=== PATIENT | female | born 1955 | race Caucasian/White ===

== ENCOUNTER → 2017-08-09 16:45 | Outpatient (REF) | payer BC, SELFPAY ==
[2017-08-09 19:11] LABS: Amphetamine/Metha Screen,Urine Negative ng/mL (<1000); Barbiturates Screen,Urine Negative ng/mL (<200); Benzodiazepines Screen,Urine Negative ng/mL (200); Cannabinoid Screen,Urine Negative ng/mL (<50); Cocaine Screen,Urine Negative ng/g (<300); Methadone Screen,Urine Negative ng/mL (<300); Opiate Screen,Urine Negative ng/mL (<300); Phencyclidine Screen,Urine Negative ng/mL (<25)
== END ==
LOC: LAB 16:45
PROVIDERS: Visit Provider Nurse Practitioner Family
DX: Z79.899 Other long term (current) drug therapy (principal)
CPT/HCPCS: 80305

== ENCOUNTER → 2019-02-04 12:57 | Outpatient (CLI) | payer SELFPAY ==
--- NOTE | 2019-02-04 13:04 | XR_ITS ---
PROCEDURE: XR HAND RT MIN 3V CLINICAL INDICATION: spider bite Pain and swelling COMPARISON: No exams were available for comparison FINDINGS: No fracture or dislocation. No lytic or blastic change. There is normal mineralization. The joint spaces are well-preserved. No significant degenerative/arthritic changes. No erosive changes evident. Other findings:There is a transverse screw and a K-wire present in the distal radius IMPRESSION: Postsurgical changes, no acute finding Dictated by: Hemanth Beatty MD 02/04/2019 13:14 Signed by: <Electronically signed by Hemanth Beatty MD in [facility]> 02/04/2019 13:14
== END ==
PROVIDERS: PCP Nurse Practitioner Family; Visit Provider Orthopaedic Surgery
DX: T63.301A Toxic effect of unspecified spider venom, accidental (unintentional), initial encounter (principal)
CPT/HCPCS: 73130

== ENCOUNTER → 2019-07-05 09:47 | Outpatient (CLI) | payer MEDICAID, SELFPAY ==
--- NOTE | 2019-07-05 09:49 | XR_ITS ---
PROCEDURE: XR CHEST 2V CLINICAL HISTORY: cough COMPARISON: No exams were available for comparison FINDINGS: The cardiomediastinal silhouette and pulmonary vascularity are within normal limits. The lungs are clear without infiltrates, suspicious nodules, or pleural effusions. No acute bony abnormalities. IMPRESSION: No acute findings. Dictated by: Dre Manley 07/05/2019 11:48 Electronically signed by Dre Manley in [facility] 07/05/2019 11:48
== END ==
PROVIDERS: PCP Emergency Medicine; Visit Provider Nurse Practitioner Family
DX: R05 Cough (principal); I10 Essential (primary) hypertension
CPT/HCPCS: 71046

== ENCOUNTER → 2019-07-05 10:35 | Outpatient (CLI) | payer MEDICAID, SELFPAY ==
[2019-07-05 11:29] LABS: Basophils # 0.1 K/mm3 (0-0.2); Basophils % 0.9 % (0.1-2.0); Eosinophils # 0.2 K/mm3 (0.0-0.4); Eosinophils % 3.1 % (0.1-12.0); Hematocrit 42.5 % (37.0-47.0); Lymphocytes # 2.4 K/mm3 (0.7-4.5); Lymphocytes % 32.7 % (10-50); Mean Corpuscular Hemoglobin 27.7 pg (27.0-31.2); Mean Corpuscular Volume 83.9 fl (81-99); Monocytes # 0.3 K/mm3 (0.1-1.0); Monocytes % 4.4 % (1.7-9.3); Neutrophils # 4.3 K/mm3 (1.8-7.8); Platelet Count 308 K/mm3 (142-424); Red Blood Count 5.07 M/mm3 (4.20-5.40); Red Cell Distribution Width 13.5 % (11.5-17.5); White Blood Count 7.2 K/mm3 (4.8-10.8)
[2019-07-05 13:28] LABS: Alanine Aminotransferase 22 U/L (12-78); Albumin/Globulin Ratio 1.1 (1.1-1.8); Alkaline Phosphatase 81 U/L (46-116); Anion Gap 15.6 mEq/L (5-15); Aspartate Amino Transferase 17 U/L (15-37); Bilirubin,Total 0.5 mg/dL (0.2-1.0); Blood Urea Nitrogen 16 mg/dL (7-18); Calcium 9.5 mg/dL (8.5-10.1); Carbon Dioxide 25 mmol/L (21.0-32.0); Chloride 102 mmol/L (98-107); Creatinine,Serum 0.89 mg/dL (0.55-1.02); Estimated Glomerular Filt Rate 64 ml/min (>60); GFR (African American) 78 ML/MIN (>60); Globulin 3.5 gm/dl (1.3-3.2); Glucose 97 mg/dL (74-106); Potassium 4.6 mmoL/L (3.5-5.1); Sodium 138 mmol/L (136-145); Total Protein,Serum 7.5 gm/dL (6.4-8.2)
== END ==
PROVIDERS: Visit Provider Nurse Practitioner Family
DX: I10 Essential (primary) hypertension (principal)
CPT/HCPCS: 36415; 80053; 85025

== ENCOUNTER → 2019-11-06 14:50 | Outpatient (CLI) | payer MEDICAID, SELFPAY | PROVIDERS: Visit Provider Physician Assistant | DX: N39.0 Urinary tract infection, site not specified (principal) | CPT/HCPCS: 87086; 87088; 87186 ==

== ENCOUNTER → 2020-06-29 15:26 | Outpatient (CLI) | payer MEDICAID, SELFPAY ==
--- NOTE | 2020-06-29 15:30 | XR_ITS ---
PROCEDURE: XR CHEST 2V CLINICAL HISTORY: cough COMPARISON: CR XR CHEST 2V from 07/05/2019 FINDINGS: The cardiomediastinal silhouette and pulmonary vascularity are within normal limits. The lungs are clear without infiltrates, suspicious nodules, or pleural effusions. There is exaggeration of the thoracic kyphosis with mild midthoracic degenerative changes. IMPRESSION: No acute findings. Dictated by: Hemanth Beatty MD 06/29/2020 15:41 Hemanth Beatty MD in [facility] 06/29/2020 15:41
== END ==
PROVIDERS: PCP Nurse Practitioner Family; Visit Provider Nurse Practitioner Family
DX: R05 Cough (principal)
CPT/HCPCS: 71046

== ENCOUNTER 2020-06-30 17:06 | Observation (INO) | payer MEDICAID, SELFPAY ==
--- NOTE | 2020-06-30 17:15 | CT_ITS ---
PROCEDURE: CT ANGIO CHEST CLINCIAL INDICATION: soa,r/o pe Shortness of air, persistent pneumonia COMPARISON: No exams were available for comparison TECHNIQUE: IV Contrast: 70ML Isovue 370 Axial images obtained with sagittal and coronal reformats. All CT scans at the facility use one or more dose reduction, viz: automated exposure control, ma/kV adjustment per patient size (including targeted exams where dose is matched to indication, i.e. head), or iterative reconstruction technique. FINDINGS: HEART AND MEDIASTINAL STRUCTURES: No evidence of pulmonary embolus, aortic aneurysm, or aortic dissection. LUNGS AND PLEURAL SPACES: There are atelectatic changes in the lung bases within both lower lobes and lingula. No lobar consolidation. BONY STRUCTURES: Mild midthoracic scoliosis convex right. Degenerative changes are present in the midthoracic spine. UPPER ABDOMEN: Cholelithiasis ADDITIONAL FINDINGS: No other significant abnormalities. IMPRESSION: 1. No evidence of pulmonary embolus. 2. Bibasilar atelectasis. 3. Cholelithiasis Dictated by: Hemanth Beatty MD 07/01/2020 06:45 Hemanth Beatty MD in [facility] 07/01/2020 06:45
[2020-06-30 17:18] VITALS: BP 196/93; PULSE 91; RESP 16; TEMP 36.4; O2SAT 94; BMI 30.9
--- NOTE | 2020-06-30 17:18 | PC.NURSE ---
patient arrived on the floor by wheelchair
--- NOTE | 2020-06-30 17:30 | HMH.HP ---
*Admission Date: 06/30/20 *Chief complaint: chest pain *History of present illness: 65-year-old female with several months history of exertion shortness of air and intermittent back pain- between shoulder blades and radiating down left arm that has been coming and going since April. Pt presented to primary care office for evaluation of back discomfort with left arm discomfort at rest. Pt states her soa has increased causing her to have to stop activities to catch her breath. Patient has been treated for hypertension for many years but denies any history of cardiac problems, tobacco use, diabetes or hyperlipidemia. Spoke with Dr. Puckett about soa,HTN,weakness, pain in back between shoulder blades radiating down left arm. Due to constellation of symptoms and recent treatment for pneumonia diagnosed clinically patient was admitted for further evaluation. [facility] History I have reviewed the patient's past medical history: Yes Medical History: Reports:: Hypertension *Have you ever received a pneumonia vaccine?: No *Have you received a flu vaccine this season?: No Other Surgeries: Yes: No Previous Surgery Amputation: No Fractures: No - *Social History Smoking Status: Never smoker Tobacco Type: cigarettes Alcohol Intake: never Substance Use Type: denies use *Occupational Status:: other Housing: house Household Members: family *Travel in the last 8 weeks: None Family Hx:: Non-contributory Review of Systems - Review of Systems Review of systems:: pertinent systems reviewed and negative unless documented below - Constitutional Reports weakness, Denies body ache(s), Denies fever(s), Denies headache(s) - Eyes Denies change in vision - ENT Denies headache(s) - *Cardiovascular Reports shortness of breath, Reports shortness of breath with activity - *Respiratory Reports cough, Reports shortness of breath, Reports shortness of breath with activity - *Gastrointestinal Denies nausea, Denies vomiting - *Genitourinary Denies urinary urgency - *Musculoskeletal Denies joint pain - Integumentary/Breasts Denies rash - *Neurologic Denies confusion - Psychiatric Denies anxiety - Endocrine Denies flushing - Hematologic/Lymphatic Denies enlarged lymph nodes - Allergic/Immunologic Denies itchy eyes Meds Home Medications Medication Instructions Recorded Confirmed Type hydrochlorothiazide 25 mg tablet 25 mg PO DAILY #90 tab 11/18/19 06/30/20 Rx Losartan Potassium [Cozaar 25mg 25 mg PO DAILY 07/01/20 07/01/20 History Tablets] Allergies Allergy/AdvReac Type Severity Reaction Status Date / Time penicillin G Allergy Mild Rash Verified 06/30/20 15:34 lisinopril AdvReac Mild cough Verified 06/30/20 15:34 Ant bites AdvReac Severe [place] Uncoded 02/18/20 11:08 like swelling Exam - Constitutional no acute distress - *Routine HEENT Exam Head: Present: normocephalic Eye: Present: PERRL ENT: Present: mucous membranes moist - *Routine Neck Exam Present: supple. Absent: lymphadenopathy - *Routine Respiratory Exam Present: CTA bilaterally - *Routine Cardiovascular Exam Present: RRR, murmur - *Routine Abdominal Exam Present: soft, normoactive bowel sounds. Absent: tenderness - *Routine Extremities Exam Absent: cyanosis, clubbing, edema - *Routine Skin Exam Present: warm. Absent: rash - *Routine Neurological Exam Present: alert, oriented X3 Assessment and Plan (1) Back pain Status: Acute Category: Medical Code(s): M54.9 - Dorsalgia, unspecified (2) COVID-19 virus IgG antibody detected Status: Acute Category: Medical Code(s): Z01.84 - Encounter for antibody response examination (3) Hypertension Status: Acute Category: Medical Code(s): I10 - Essential (primary) hypertension (4) Left arm pain Status: Acute Category: Medical Code(s): M79.602 - Pain in left arm (5) Shortness of breath Status: Acute Category: Medical Code(s): R06.02 -
--- NOTE | 2020-06-30 18:14 | ECG_ITS ---
APPROVED REPORT Exam: Resting ECG HR:80 bpm ECG Measurements Heart Rate 80 AXES NE 158 P 44 QRSd 76 QRS 17 QT 396 T 19 QTc 456 Conclusion Normal sinus rhythm Nonspecific ST and T wave abnormality Abnormal ECG Electronically signed by : Porfirio Casiano, 07/01/2020 20:57:03
[2020-06-30 18:24] LABS: Basophils # 0.1 K/mm3 (0-0.2); Basophils % 0.7 % (0.1-2.0); Eosinophils # 0.3 K/mm3 (0.0-0.4); Eosinophils % 2.7 % (0.1-12.0); Hemoglobin 14.8 g/dL (12.2-16.2); Lymphocytes # 2.7 K/mm3 (0.7-4.5); Lymphocytes % 23.4 % (10-50); Mean Corpuscular HGB Conc 33.7 g/dL (31.8-35.4); Mean Corpuscular Hemoglobin 28.8 pg (27.0-31.2); Mean Corpuscular Volume 85.4 fl (81-99); Mean Platelet Volume 8.4 fl (7.4-10.4); Monocytes # 0.5 K/mm3 (0.1-1.0); Monocytes % 4.1 % (1.7-9.3); Platelet Count 295 K/mm3 (142-424); Red Blood Count 5.15 M/mm3 (4.20-5.40); Red Cell Distribution Width 14.3 % (11.5-17.5); White Blood Count 11.7 K/mm3 (4.8-10.8)
[2020-06-30 18:26] LABS: Chloride 104 mmol/L (98-107); Potassium 3.7 mmoL/L (3.5-5.1); Sodium 139 mmol/L (136-145)
[2020-06-30 18:29] LABS: Alanine Aminotransferase 22 U/L (12-78); Albumin Level 4.8 g/dl (3.5-5.0); Albumin/Globulin Ratio 1.3 (1.1-1.8); Alkaline Phosphatase 111 U/L (38-126); Anion Gap 12.7 mEq/L (5-15); Aspartate Amino Transferase 33 U/L (14-36); Bilirubin,Total 0.7 mg/dl (0.2-1.3); Blood Urea Nitrogen 15 mg/dl (7-17); Calcium 10.2 mg/dl (8.4-10.2); Carbon Dioxide 26 mmol/L (22.0-30.0); Creatinine Clearance Estimated 74 mL/min (50-200); Estimated Glomerular Filt Rate 85 ml/min (>60); GFR (African American) 102 ML/MIN (>60); Globulin 3.8 g/dL (1.3-3.2); Glucose 100 mg/dl (74-100); Total Protein,Serum 8.6 g/dl (6.3-8.2)
[2020-06-30 18:59] LABS: Troponin I < 0.01 ng/ml (0.00-0.034)
[2020-06-30 19:23] LABS: Coronavirus 19 IgG Antibody Positive (Negative); Coronavirus 19 IgM Antibody Negative (Negative)
--- NOTE | 2020-06-30 19:58 | PC.NURSE ---
Pt new admit to floor at approx 1730. Called and spoke with [employer] professional pharmacist and clarified lovenox order- see charmaine. KAYCE in reach.
[2020-06-30 20:00] VITALS: BP 164/72; PULSE 70; RESP 18; TEMP 36.6; O2SAT 97
[2020-06-30 20:13] VITALS: PULSE 60
[2020-06-30 20:58] LABS: Troponin I < 0.01 ng/ml (0.00-0.034)
[2020-06-30 21:00] VITALS: O2SAT 97
--- NOTE | 2020-06-30 22:52 | PC.NURSE ---
2100 COURTESY ROUND TRASH EMPTIED AND GLOVES REFILLED
[2020-07-01] VITALS: BP 166/68; PULSE 60; PULSE 63; RESP 18; TEMP 36.8; O2SAT 96
[2020-07-01 00:03] LABS: Troponin I < 0.01 ng/ml (0.00-0.034)
[2020-07-01 04:00] VITALS: BP 161/69; PULSE 50; PULSE 67; RESP 20; TEMP 36.7; O2SAT 96
--- NOTE | 2020-07-01 04:51 | PC.NURSE ---
Pt is A&Ox4 and has ambulated independently and tolerated well. Pt has denied any pain t/o shift and reports that she feels better now than I have in days . Serial troponins were <0.01 x3. NSR on telemtry. HR is RRR. Lungs CTA and pt on room air with sats 96-97% this shift. Pt denies any dizziness, SOA, or arm/neck pain. No peripheral edema, pulses 2+. Pt denies any N/V/D and states her last BM was 06/30/20 in AM. ABD is soft with active bowel sounds t/o. Pt continues to be HTN, 160s SBP. Call light within reach.
[2020-07-01 05:15] VITALS: BMI 30.7
--- NOTE | 2020-07-01 06:07 | PC.NURSE ---
JILLIAN BURGESS NOTIFIED OF CONSULT.
[2020-07-01 06:21] LABS: Basophils # 0.1 K/mm3 (0-0.2); Eosinophils # 0.5 K/mm3 (0.0-0.4); Eosinophils % 4.4 % (0.1-12.0); Hematocrit 38.8 % (37.0-47.0); Lymphocytes # 3.6 K/mm3 (0.7-4.5); Lymphocytes % 35.3 % (10-50); Mean Corpuscular HGB Conc 33.8 g/dL (31.8-35.4); Mean Corpuscular Hemoglobin 28.4 pg (27.0-31.2); Mean Corpuscular Volume 83.8 fl (81-99); Mean Platelet Volume 8.2 fl (7.4-10.4); Monocytes # 0.5 K/mm3 (0.1-1.0); Monocytes % 5.3 % (1.7-9.3); Neutrophils # 5.6 K/mm3 (1.8-7.8); Platelet Count 267 K/mm3 (142-424); Red Blood Count 4.62 M/mm3 (4.20-5.40); Red Cell Distribution Width 14.4 % (11.5-17.5); White Blood Count 10.3 K/mm3 (4.8-10.8)
[2020-07-01 06:25] LABS: Alanine Aminotransferase 17 U/L (12-78); Albumin Level 3.8 g/dl (3.5-5.0); Albumin/Globulin Ratio 1.2 (1.1-1.8); Alkaline Phosphatase 76 U/L (38-126); Anion Gap 11.5 mEq/L (5-15); Aspartate Amino Transferase 26 U/L (14-36); Bilirubin,Total 0.6 mg/dl (0.2-1.3); Blood Urea Nitrogen 16 mg/dl (7-17); Calcium 9.5 mg/dl (8.4-10.2); Carbon Dioxide 26 mmol/L (22.0-30.0); Chloride 105 mmol/L (98-107); Chol/HDL Ratio 4.5 (1-3.5); Cholesterol 181 mg/dl (140-200); Creatinine Clearance Estimated 74 mL/min (50-200); Estimated Glomerular Filt Rate 72 ml/min (>60); GFR (African American) 88 ML/MIN (>60); Globulin 3.3 g/dL (1.3-3.2); Glucose 100 mg/dl (74-100); HDL Cholesterol 40 mg/dl (40-60); Potassium 4.5 mmoL/L (3.5-5.1); Sodium 138 mmol/L (136-145); Total Protein,Serum 7.1 g/dl (6.3-8.2); Triglycerides 312 mg/dl (30-150); VLDL Cholesterol 62 mg/dL (0-40)
[2020-07-01 06:29] LABS: Hemoglobin 13.1 g/dL (12.2-16.2)
[2020-07-01 06:36] LABS: Direct LDL Cholesterol 82.79 mg/dL (100-129)
--- NOTE | 2020-07-01 06:55 | INFXCTL.NOTE ---
0600 COURTESY ROUND TRASH EMPTIED .
--- NOTE | 2020-07-01 07:23 | P.CONPHA_ITS ---
[facility] Pharmacy VTE Monitoring - Patient Demographics Admission date: 06/30/20 Report Date: 07/01/20 Time: 07:23 Allergies/Adverse Reactions: Patient Allergies penicillin G Allergy (Mild, Verified 06/30/20 15:34) Rash lisinopril Adverse Reaction (Mild, Verified 06/30/20 15:34) cough Ant bites Adverse Reaction (Severe, Uncoded 02/18/20 11:08) [place] like swelling Height: 1.63 m Weight: 81.649 kg - VTE Risk Labs: VTE Related Lab Results Hgb 13.1 g/dL (12.2-16.2) D 07/01/20 06:00 Hct 38.8 % (37.0-47.0) 07/01/20 06:00 Plt Count 267 K/mm3 (142-424) 07/01/20 06:00 BUN 16 mg/dl (7-17) 07/01/20 06:00 Creatinine 0.80 mg/dl (0.52-1.04) 07/01/20 06:00 Estimated Creat Clear 74 mL/min (50-200) 07/01/20 06:00 - Prophylaxis VTE Prophylaxis Ordered?: Yes Types of VTE Prophylaxis: TEDS Knee High, Pharmacological Location of Applied Device: Bilateral Lower Extremeties Pharmacologic Type: Enoxaparin
--- NOTE | 2020-07-01 07:23 | HMH.PHAINT ---
MEDICATION RECONCILIATION COMPLETED ON PATIENT USING EXTERNAL FILL HISTORY FROM PHARMACY AND LIST FROM MD OFFICE. -SCARLET ERNANDEZD
--- NOTE | 2020-07-01 07:34 | NM_ITS ---
APPROVED REPORT Exam: Nuclear Stress Test Indication: short of breath..fatigue Patient Location: Inpatient Stress Tech: Esthela Lyon NM Tech:ANNABEL Flores RT(R)(N) Ht: 5 ft 1 in Wt: 190 lbs Bra Size: 40d HR: 57 bpm BP: 160/55 mmHg BSA: 1.85 m2 BMI: 35.8 History: short of breath..fatigue Procedure: Patient received a 0.4 mg of intravenous Lexiscan, resting heart rate 57 bpm, resting blood pressure 160/55 mmHg, with Lexiscan maximum heart rate achived was 80 bpm which is Less than 85 % of the maximum predicted heart rate and blood pressure was 179/67 mmHg. With Lexiscan, patient denied any complaint of chest pain. Electrocardiogram Resting electrocardiogram showed sinus rhythm, with Lexiscan there is less than 1.[address] segment depression noted from the baseline EKG. The EKG portion of the Lexiscan is nondiagnostic. Cardiac Stress and Resting SPECT Images: Cardiac Stress and Resting SPECT images were obtained using technetium 99m Myoview 30.6 mCi stress and 9.92 mCi at rest. Gated SPECT for analysis of segmental wall motion and calculation of the ejection fraction also done. Prone images were also obtained. Cardiac stress and resting SPECT images show uniform myocardial activity without segmental perfusion abnormality, computer derived ejection fraction is 54% with no regional wall motion abnormality, right ventricle is normal size and contractility. Conclusion: 1. The EKG portion of the Lexiscan is nondiagnostic. 2. No scintigraphic evidence of reversible ischemia seen, computer derived ejection fraction is 54% with no regional wall motion abnormality, right ventricle is normal size and contractility 3. Normal Lexiscan Myoview study. Electronically signed by : Erick Lopez, 07/01/2020 13:45:42
--- NOTE | 2020-07-01 07:34 | CA_ITS ---
APPROVED REPORT Exam: Pharmacologic Technologist: ,, Ht: 5 ft 4 in Wt: 180 lbs BSA: 1.87 m2 Medical History Medications: Aspirin,,,,, Losartan,,,,, HCTZ,,,,, BisOPROLOL,,,,, Stress Test Details Test: LEXISCAN HR Resting HR: 59 bpm Max Heart Rate (APMHR): 157 bpm Max HR Achieved: 82 bpm Target HR (85% APMHR): 133 bpm % of APMHR: 52 Recovery HR: 69 bpm BP Resting BP: 160/55 mmHg Max BP: 179/67 mmHg Recovery BP: 176.0/66.0 mmHg ECG Resting ECG: NSR, ST-T abns inferiorly and laterally Clinical Exercise duration: 04:05 min Highest Stage Achieved: Exercise capacity: 1.0 METs Stress ECG Conclusion Switched from exercise due to inadequate exercise toleratnce (3:45 on Isiah Protocol) Symptoms: Brief SOA, malaise, No CP. Arrythmias/Ectopy: None ST-T Changes: Mild exaggeration of baseline ST-T abns. Conclusion: Non-diagnostic Lexiscan stress. Myoview images reported separately. Test Summary REST . . . . . . . Resting REST 03:04 . . 59 . 160/ 55 . . Stage 1 . . . . . . . Cardiolite injected Stage 1 01:00 . . 74 . . . . Stage 2 01:00 . . 79 . . . . Stage 3 01:00 . . 74 . 179/ 67 . . Stage 4 01:00 . . 75 . 161/ 64 . . Stage 4 01:05 . . 72 . 169/ 70 . Stop exercise at 04:05 RECOVERY 01:00 . . 71 . . . . RECOVERY 02:00 . . 77 . 165/ 61 . . RECOVERY 03:00 . . 69 . 176/ 66 . . RECOVERY 03:26 . . 72 . 176/ 66 . . Electronically signed by : Erick Lopez, 07/01/2020 13:41:30
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
[2020-07-01 08:00] VITALS: BP 155/78; PULSE 60; PULSE 65; RESP 18; TEMP 36.6; O2SAT 97
[2020-07-01 08:30] LABS: Adenovirus,PCR Not Detected (NotDetected); Bordetella Pertussis Not Detected (NotDetected); Chlamydophila Pneumoniae, PCR Not Detected (NotDetected); Coronavirus 19, PCR Not Detected (NotDetected); Coronavirus 229E Not Detected (NotDetected); Coronavirus NL63 Not Detected (NotDetected); Coronavirus OC43 Not Detected (NotDetected); Coronovirus HKU1,PCR Not Detected (NotDetected); Human Metapneumovirus Not Detected (NotDetected); Influenza A, PCR Not Detected (NotDetected); Influenza AH1, 2009 Not Detected (NotDetected); Influenza AH1, PCR Not Detected (NotDetected); Influenza AH3,PCR Not Detected (NotDetected); Influenza B, PCR Not Detected (NotDetected); Mycoplasma Pneumoniae, PCR Not Detected (NotDetected); Parainfluenza 1, PCR Not Detected (NotDetected); Parainfluenza 2, PCR Not Detected (NotDetected); Parainfluenza 3, PCR Not Detected (NotDetected); Parainfluenza 4, PCR Not Detected (NotDetected); Respiratory Syncytial Virus Not Detected (NotDetected); Rhinovirus/Enterovirus Not Detected (NotDetected)
--- NOTE | 2020-07-01 08:30 | PC.NURSE ---
PT ASSESSED AT THIS TIME. PT STATES THAT SHE FEELS BETTER THAN SHE DID YESTERDAY BUT IS STILL WEAK AND FATIGUED. PT HAS AN INTERMITTENT COUGH THAT IS SOMETIMES PRODUCTIVE SOMETIMES YELLOW SPUTUM MOSTLY WHITE CLEAR SPUTUM. BILATERAL LUNG SOUNDS CLEAR. NO EDEMA NOTED. PLANS FOR STRESS TEST AND IF GOOD DC HOME IF NOT PLAN FOR HEART CATH. WILL CONTINUE TO OBSERVE.
--- NOTE | 2020-07-01 10:15 | PC.NURSE ---
PT TAKEN FOR STRESS TEST AT THIS TIME.
--- NOTE | 2020-07-01 13:00 | PC.NURSE ---
PT RETURNED TO ROOM 207 AT THIS TIME. PT HOOKED BACK UP TO TELE AND IV. ASKING WHEN SHE COULD EAT. INSTRUCTED THAT THE TEST WOULD HAVE TO BE REVIEWED BY MD FIRST. SOLANGE PERKINS.
--- NOTE | 2020-07-01 14:55 | PC.NURSE ---
GINA CALLED AT THIS TIME. PT ASKING FOR FOOD. STATES DR WILL REVIEW REPORT AND DETERMINE IF SHE CAN HAVE DIET BACK OR NOT.
--- NOTE | 2020-07-01 15:19 | HMH.DCSUM ---
General - General Admission date:: 06/30/20 Discharge date: 07/01/20 HPI HPI: 65-year-old female with several months history of exertion shortness of air and intermittent back pain- between shoulder blades and radiating down left arm that has been coming and going since April. Pt presented to primary care office for evaluation of back discomfort with left arm discomfort at rest. Pt states her soa has increased causing her to have to stop activities to catch her breath. Patient has been treated for hypertension for many years but denies any history of cardiac problems, tobacco use, diabetes or hyperlipidemia. Spoke with Dr. Puckett about soa,HTN,weakness, pain in back between shoulder blades radiating down left arm. Due to constellation of symptoms and recent treatment for pneumonia diagnosed clinically patient was admitted for further evaluation. Hospital Course Hospital Course: 65-year-old female with several months history of exertion shortness of air and intermittent back pain- between shoulder blades and radiating down left arm that has been coming and going since April. Pt presented to primary care office for evaluation of back discomfort with left arm discomfort at rest. Pt states her soa has increased causing her to have to stop activities to catch her breath. Patient has been treated for hypertension for many years but denies any history of cardiac problems, tobacco use, diabetes or hyperlipidemia. Spoke with Dr. Puckett about soa,HTN,weakness, pain in back between shoulder blades radiating down left arm. Due to constellation of symptoms and recent treatment for pneumonia diagnosed clinically patient was admitted for further evaluation. CBC in ED, chemistry unremarkable, troponins negative x3 Chest CTA: FINDINGS: HEART AND MEDIASTINAL STRUCTURES: No evidence of pulmonary embolus, aortic aneurysm, or aortic dissection. LUNGS AND PLEURAL SPACES: There are atelectatic changes in the lung bases within both lower lobes and lingula. No lobar consolidation. BONY STRUCTURES: Mild midthoracic scoliosis convex right. Degenerative changes are present in the midthoracic spine. UPPER ABDOMEN: Cholelithiasis ADDITIONAL FINDINGS: No other significant abnormalities. IMPRESSION: 1. No evidence of pulmonary embolus. 2. Bibasilar atelectasis. 3. Cholelithiasis Dictated by: Rogerio, 07/01/2020 ECHO: Conclusion 1. Mildly enlarged left atrium, normal left ventricular size, mild concentric left ventricular hypertrophy, visually estimated ejection fraction 55% with no regional wall motion abnormality, grade 1 diastolic dysfunction seen without tissue Doppler evidence of raise left atrial pressure. 2. Mild aortic, mild mitral and tricuspid regurgitation. 3. No significant pericardial effusion noted. Electronically signed by : Erick Lopez 07/01/2020 stress test: Conclusion: 1. The EKG portion of the Lexiscan is nondiagnostic. 2. No scintigraphic evidence of reversible ischemia seen, computer derived ejection fraction is 54% with no regional wall motion abnormality, right ventricle is normal size and contractility 3. Normal Lexiscan Myoview study. Electronically signed by : Erick Lopez Cardiology has seen and rec: Pt now relates cough on losartan (same as on lisinopril). Baljinder myoview shows no ischemia with normal LVEF. Echo shows normal LVEF with grade I DD and mild aortic sclerosis. OK for discharge home meds: norvasc 5 mg daily HCTZ 25 mg daily bisoprolol 10 mg daily at night Follow up in 2 wks. 65-year-old female patient sitting up in bed respirations easy and even. She denies any chest pain or shortness of breath during the night. Stress test is negative and she will be discharged home today she is agreeable to this. CBC this morning unremarkable, chemistry unremarkable, troponins negative x3 Plan: 1. We will discharge home today 2. Follow-up with PCP in 1 w
--- NOTE | 2020-07-01 16:18 | PC.NURSE ---
PT AMBULATED WITH X1 [facility] STAFF OFF OF UNIT AT THIS TIME.
--- NOTE | 2020-07-01 17:15 | CA_ITS ---
APPROVED REPORT EXAM: Comprehensive 2D, Doppler, and color-flow Echocardiogram Shroudman: Tameka De Los Santos CRT Ht: 5 ft 4 in Wt: 180lbs BSA: 1.87 BP: 172/98 mmHg Indications: Chest Pain, Hypertension/HDD 2D Dimensions LVOT 1.73 cm (M/F) 1.5-2.5 M-Mode Dimensions RVDd 2.21 cm (0.9-2.6) LA Diam 4.39 cm (1.9-4.0) LVDd 4.75 cm (3.5-5.7) Ao Diam 3.45 cm (2.0-3.7) LVDs 3.54 cm (3.5-5.7) IVSd 1.37 cm (0.6-1.1) PWd 0.76 cm (0.6-1.1) EF (Teich) 50.10% FS 25.50% EDV (Teich) 104.90 mL ESV (Teich) 52.30 mL LV Diastology E Decel Time 150.00 (160-240 msec) E/A Ratio 0.75 MED E' 6.00 (< 7 cm/sec) MED A' 7.10 cm/s E'/MED E' Ratio 11.72 (>14) LAT E' 7.60 (<10 cm/sec) LAT A' 5.40 cm/s E/LAT E' Ratio 9.25 (>14) Aortic Valve LVOT Max 193.00 (70-110 cm/s) LVOT VTI 48.24 cm AoV Peak Mauri. 272.00 (50-130 cm/s) AI PHT 532.00 ms AO Peak GR. 29.50 mmHg AO Mean GR. 15.00 (<5 mmHg) AO VTI 58.56 (18-25 cm) EVANGELIST (VTI) 1.94 (2.5-4.5 cm2) Mitral Valve MV E Max Mauri. 70.00 (40-130 cm/s) MV A Velocity 94.00 (40-130 cm/s) E/A Ratio 0.75 MV Decel. Time 150.00 (160-240 ms) MV PHT 44.00 ms Pulmonary Valve PV Peak Velocity 74.00 (50-150 cm/s) Tricuspid Valve TR P. Velocity 247.00 cm/s RAP Estimate 10.00 mmHg RVSP 34.30 mmHg Left Ventricle Left atrium is mildly enlarged, left ventricle is normal size, mild concentric left ventricular hypertrophy, visually estimated ejection fraction 55% with no regional wall motion abnormality, grade 1 diastolic dysfunction seen without tissue Doppler evidence of raise left atrial pressure. Right Ventricle Right atrium and right ventricle are normal size and contractility. Aortic Valve Aortic valve is thickened and calcified leaflet chordae display good mobility, there is no aortic stenosis, there is mild aortic insufficiency. Mitral Valve Mitral valve is grossly normal, there is mild mitral regurgitation. Tricuspid Valve Tricuspid valve grossly normal, there is trace tricuspid regurgitation, tricuspid regurgitation jet velocity is inadequate for calculation of the right ventricular systolic pressure. Pulmonic Valve Pulmonic valve is poorly visualized. Great Vessels Aortic root is normal size. Pericardium No significant pericardial effusion noted. Conclusion 1. Mildly enlarged left atrium, normal left ventricular size, mild concentric left ventricular hypertrophy, visually estimated ejection fraction 55% with no regional wall motion abnormality, grade 1 diastolic dysfunction seen without tissue Doppler evidence of raise left atrial pressure. 2. Mild aortic, mild mitral and tricuspid regurgitation. 3. No significant pericardial effusion noted. Electronically signed by : Erick Lopez, 07/01/2020 14:43:29
== END 2020-07-01 16:19 | disposition home or self-care (01) ==
PROVIDERS: Physician Assistant; Admitting Provider Emergency Medicine; PCP Nurse Practitioner Family; Visit Provider Emergency Medicine
DX: I20.8 Other forms of angina pectoris (principal); M54.9 Dorsalgia, unspecified; M79.602 Pain in left arm; R06.02 Shortness of breath; Z86.16 Personal history of COVID-19; I10 Essential (primary) hypertension; Z88.0 Allergy status to penicillin
CPT/HCPCS: 36415; 71275; 78452; 80053; 80061; 84484; 85025; 86328; 87581; 87633; 87798; 93005; 93017; 93306; A9502; G0378; J2785; Q9967; U0003

== ENCOUNTER → 2020-09-17 13:29 | Outpatient (CLI) | payer MEDICAID, SELFPAY ==
[2020-09-17 13:39] LABS: Basophils # 0.1 K/mm3 (0-0.2); Basophils % 0.7 % (0.1-2.0); Eosinophils # 0.5 K/mm3 (0.0-0.4); Eosinophils % 4.4 % (0.1-12.0); Hemoglobin 13.7 g/dL (12.2-16.2); Lymphocytes # 2.1 K/mm3 (0.7-4.5); Lymphocytes % 18.6 % (10-50); Mean Corpuscular HGB Conc 32.7 g/dL (31.8-35.4); Mean Corpuscular Hemoglobin 27.7 pg (27.0-31.2); Mean Corpuscular Volume 84.7 fl (81-99); Mean Platelet Volume 8.3 fl (7.4-10.4); Monocytes # 0.4 K/mm3 (0.1-1.0); Monocytes % 3.2 % (1.7-9.3); Neutrophils # 8.4 K/mm3 (1.8-7.8); Neutrophils % 73.1 % (37.0-80.0); Platelet Count 294 K/mm3 (142-424); Red Blood Count 4.96 M/mm3 (4.20-5.40); Red Cell Distribution Width 13.5 % (11.5-17.5); White Blood Count 11.4 K/mm3 (4.8-10.8)
[2020-09-17 13:43] LABS: Alanine Aminotransferase 21 U/L (12-78); Albumin Level 4.5 g/dl (3.5-5.0); Albumin/Globulin Ratio 1.4 (1.1-1.8); Alkaline Phosphatase 99 U/L (38-126); Anion Gap 14.9 mEq/L (5-15); Aspartate Amino Transferase 29 U/L (14-36); Bilirubin,Total 0.8 mg/dl (0.2-1.3); Blood Urea Nitrogen 20 mg/dl (7-17); Calcium 9.9 mg/dl (8.4-10.2); Carbon Dioxide 26 mmol/L (22.0-30.0); Chloride 100 mmol/L (98-107); Chol/HDL Ratio 4.9 (1-3.5); Cholesterol 205 mg/dl (140-200); Estimated Glomerular Filt Rate 63 ml/min (>60); GFR (African American) 77 ML/MIN (>60); Globulin 3.3 g/dL (1.3-3.2); Glucose 134 mg/dl (74-100); HDL Cholesterol 42 mg/dl (40-60); Potassium 3.9 mmoL/L (3.5-5.1); Sodium 137 mmol/L (136-145); Total Protein,Serum 7.8 g/dl (6.3-8.2); Triglycerides 226 mg/dl (30-150); VLDL Cholesterol 45 mg/dL (0-40)
[2020-09-17 13:54] LABS: Direct LDL Cholesterol 108.38 mg/dL (100-129)
[2020-09-17 13:58] LABS: Hemoglobin A1C 5.8 % (4.0-6.0)
[2020-09-17 14:00] LABS: 25-OH Vitamin D, Total 40.7 ng/mL (30-100); T4 (Thyroxine) 10.3 ug/dl (5.53-11.0)
[2020-09-17 14:13] LABS: Thyroid Stimulating Hormone 0.86 uIU/mL (0.465-4.68)
== END ==
PROVIDERS: Visit Provider Nurse Practitioner Family
DX: I10 Essential (primary) hypertension (principal); R73.03 Prediabetes; Z68.33 Body mass index [BMI] 33.0-33.9, adult
CPT/HCPCS: 80053; 80061; 82306; 83036; 84436; 84443; 85025

== ENCOUNTER → 2022-11-22 23:16 | Outpatient (CLI) | payer MEDICARE, MEDICAID, SELFPAY ==
[2022-11-22 18:19] LABS: Basophils # 0.1 K/mm3 (0-0.2); Basophils % 0.8 % (0.1-2.0); Eosinophils # 0.2 K/mm3 (0.0-0.4); Eosinophils % 2.1 % (0.1-12.0); Hematocrit 42.2 % (37.0-47.0); Hemoglobin 13.8 g/dL (12.2-16.2); Lymphocytes # 2.1 K/mm3 (0.7-4.5); Lymphocytes % 28.5 % (10-50); Mean Corpuscular HGB Conc 32.7 g/dL (31.8-35.4); Mean Corpuscular Hemoglobin 27.6 pg (27.0-31.2); Mean Corpuscular Volume 84.3 fl (81-99); Mean Platelet Volume 8.9 fl (7.4-10.4); Monocytes # 0.5 K/mm3 (0.1-1.0); Monocytes % 6.5 % (1.7-9.3); Neutrophils # 4.5 K/mm3 (1.8-7.8); Platelet Count 312 K/mm3 (142-424); White Blood Count 7.3 K/mm3 (4.8-10.8)
[2022-11-22 18:27] LABS: Alanine Aminotransferase 27 U/L (12-78); Albumin Level 4.4 g/dl (3.5-5.0); Albumin/Globulin Ratio 1.5 (1.1-1.8); Alkaline Phosphatase 104 U/L (38-126); Anion Gap 17.1 mEq/L (5-15); Aspartate Amino Transferase 30 U/L (14-36); Bilirubin,Total 0.4 mg/dl (0.2-1.3); Blood Urea Nitrogen 21 mg/dl (7-17); Calcium 9.5 mg/dl (8.4-10.2); Carbon Dioxide 26 mmol/L (22.0-30.0); Chloride 102 mmol/L (98-107); Chol/HDL Ratio 4.4 (1-3.5); Cholesterol 213 mg/dl (140-200); Estimated Glomerular Filt Rate 50 ml/min (>60); GFR (African American) 60 ML/MIN (>60); Globulin 2.9 g/dL (1.3-3.2); Glucose 95 mg/dl (74-100); HDL Cholesterol 48 mg/dl (40-60); Potassium 4.1 mmoL/L (3.5-5.1); Sodium 141 mmol/L (136-145); Total Protein,Serum 7.3 g/dl (6.3-8.2); Triglycerides 331 mg/dl (30-150); VLDL Cholesterol 66 mg/dL (0-40)
[2022-11-22 18:38] LABS: Direct LDL Cholesterol 97.26 mg/dL (100-129)
[2022-11-22 18:44] LABS: 25-OH Vitamin D, Total 26.2 ng/mL (30-100)
[2022-11-22 18:58] LABS: Thyroid Stimulating Hormone 1.23 uIU/mL (0.465-4.68)
== END ==
PROVIDERS: PCP Physician Assistant; Visit Provider Physician Assistant
DX: Z00.00 Encounter for general adult medical examination without abnormal findings (principal); I10 Essential (primary) hypertension; R53.83 Other fatigue; E55.9 Vitamin D deficiency, unspecified; E66.9 Obesity, unspecified; Z68.35 Body mass index [BMI] 35.0-35.9, adult; Z79.899 Other long term (current) drug therapy
CPT/HCPCS: 80053; 80061; 82306; 84443; 85025

== ENCOUNTER → 2022-11-27 19:08 | Outpatient (CLI) | payer MEDICARE, MEDICAID, SELFPAY ==
[2022-11-27 19:28] LABS: Chloride 97 mmol/L (98-107); Potassium 3.4 mmoL/L (3.5-5.1); Sodium 138 mmol/L (136-145)
[2022-11-27 19:31] LABS: Alanine Aminotransferase 25 U/L (12-78); Albumin Level 4.1 g/dl (3.5-5.0); Albumin/Globulin Ratio 1.4 (1.1-1.8); Alkaline Phosphatase 93 U/L (38-126); Anion Gap 14.4 mEq/L (5-15); Aspartate Amino Transferase 27 U/L (14-36); Bilirubin,Total 0.4 mg/dl (0.2-1.3); Blood Urea Nitrogen 19 mg/dl (7-17); Carbon Dioxide 30 mmol/L (22.0-30.0); Estimated Glomerular Filt Rate 63 ml/min (>60); GFR (African American) 76 ML/MIN (>60); Globulin 2.9 g/dL (1.3-3.2)
[2022-11-27 19:32] LABS: Calcium 9.1 mg/dl (8.4-10.2); Glucose 132 mg/dl (74-100)
[2022-11-28 10:21] LABS: Hemoglobin A1C 5.5 % (4.0-6.0)
== END ==
PROVIDERS: PCP Physician Assistant; Visit Provider Physician Assistant
DX: R79.89 Other specified abnormal findings of blood chemistry (principal); R73.09 Other abnormal glucose
CPT/HCPCS: 80053; 83036

== ENCOUNTER → 2022-12-01 16:43 | Outpatient (CLI) | payer MEDICARE, MEDICAID, SELFPAY ==
--- NOTE | 2022-12-01 16:44 | MM_ITS ---
PROCEDURE INFORMATION: Exam: MG Bilateral Screening 3D Mammography Exam date and time: 12/01/2022 4:35 PM Age: 67 years old Clinical indication: Screening examination TECHNIQUE: Imaging protocol: Bilateral Screening tomosynthesis and 2D mammography including computer-aided detection (CAD) when performed. COMPARISON: 1. MG DMDXUAVR DIG MAMM-DX UNI A/VW-RT W/CAD 12/26/2016 2:37 PM 2. MG DMSB DIG MAMM-SCREEN KHALIF W/CAD 12/18/2016 8:33 AM FINDINGS: MAMMOGRAPHY: Breast composition: There are scattered areas of fibroglandular density. Mass: None. Architectural distortion: None. Calcifications: No suspicious calcifications. Asymmetric density: None. Skin thickening: None. Axillary adenopathy: None. IMPRESSION: No mammographic evidence of malignancy. Annual screening is recommended unless otherwise clinically indicated. ASSESSMENT: BI-RADS Category 1: Negative
== END ==
PROVIDERS: PCP Physician Assistant; Visit Provider Physician Assistant
DX: Z12.31 Encounter for screening mammogram for malignant neoplasm of breast (principal)
CPT/HCPCS: 77063; 77067

== ENCOUNTER → 2022-12-04 16:58 | Outpatient (CLI) | payer MEDICARE, MEDICAID, SELFPAY | PROVIDERS: PCP Physician Assistant; Visit Provider Physician Assistant | DX: G47.33 Obstructive sleep apnea (adult) (pediatric) (principal); R40.0 Somnolence; R06.83 Snoring | CPT/HCPCS: G0399 ==

== ENCOUNTER 2023-07-01 00:29 | Emergency (ER) | payer MEDICARE, MEDICAID, SELFPAY ==
[2023-07-01 00:30] VITALS: BP 198/88; PULSE 99; RESP 20; TEMP 37; O2SAT 99; BMI 33.3
--- NOTE | 2023-07-01 00:33 | HMH.EDGENADL ---
Discharge Plan Disposition Patient Disposition: Home, Self-Care Prescriptions Prescriptions: New amoxicillin-pot clavulanate 875-125 mg tablet 1 tab PO BID 5 Days Qty: 10 0RF No Action prednisone 20 mg tablet 20 mg PO BID 5 Days Qty: 10 0RF naproxen 500 mg tablet 500 mg PO BID Qty: 30 0RF cholecalciferol (vitamin D3) 50 mcg (2,000 unit) capsule 50 mcg PO DAILY Qty: 90 3RF ergocalciferol (vitamin D2) 1,250 mcg (50,000 unit) capsule 1,250 mcg PO WEEKLY Qty: 14 3RF amlodipine 10 mg tablet See Rx Instructions .ROUTE .COMPLEX Qty: 90 0RF Dose Instruction: TAKE ONE TABLET BY MOUTH EVERY DAY Rx Instructions: TAKE ONE TABLET BY MOUTH EVERY DAY losartan-hydrochlorothiazide 100-25 mg tablet See Rx Instructions .ROUTE .COMPLEX Qty: 90 1RF Dose Instruction: TAKE ONE TABLET BY MOUTH EVERY DAY Rx Instructions: TAKE ONE TABLET BY MOUTH EVERY DAY Referrals Follow up/Referrals: Flaquita Jacobo PA [Primary Care Provider] - See instructions Activity Restrictions/Add. Instructions Additional Instructions/Restrictions: Please follow-up with your primary care provider. Please return to the emergency department if you develop any new or worsening symptoms or become concerned for your health. Please monitor for signs of infection. The sutures should dissolve on their own in the next 7 to 10 days. Please take Augmentin as prescribed for prophylaxis of infection. Clinical Impressions Clinical Impression: Dog bite of extremity Laceration of hand, right Qualifiers: Encounter type: initial encounter Foreign body presence: without foreign body Qualified Code(s): S61.411A - Laceration without foreign body of right hand, initial encounter Instructions Patient Instructions: Animal Bites Discharge ED Provider: Favian Garcia General Adult HPI General Chief complaint: Animal Bite Stated complaint: Dog Bite 0015 07/01/23 Time Seen by Provider: 07/01/23 00:33 History of Present Illness HPI narrative: 68-year-old female presents with dog bite to the right hand. She reports that she was bit by her own dog after she was get up. She reports there is no crushing injury, just a laceration. She reports no pain with range of motion of the hand. She reports that the dog is up-to-date on vaccinations. She has had a tetanus shot recently. Related Data Previous Rx's Medication Instructions Recorded amlodipine 10 mg tablet See Rx Instructions .Route 03/29/23 .COMPLEX #90 tabs losartan 100 See Rx Instructions .Route 06/01/23 mg-hydrochlorothiazide 25 mg tablet .COMPLEX #90 tabs cholecalciferol (vitamin D3) 50 50 mcg PO DAILY #90 caps 06/27/23 mcg (2,000 unit) capsule ergocalciferol (vitamin D2) 1,250 1,250 mcg PO WEEKLY #14 caps 06/27/23 mcg (50,000 unit) capsule naproxen 500 mg tablet 500 mg PO BID #30 tabs 06/27/23 prednisone 20 mg tablet 20 mg PO BID 5 days #10 tabs 06/27/23 amoxicillin 875 mg-potassium 1 tab PO BID 5 days #10 tabs 07/01/23 clavulanate 125 mg tablet Allergies Allergy/AdvReac Type Severity Reaction Status Date / Time penicillin G Allergy Mild Rash Verified 06/27/23 11:17 lisinopril AdvReac Mild cough Verified 06/27/23 11:17 Ant bites AdvReac Severe [place] Uncoded 06/27/23 11:17 [facility] Disclaimer: The information contained in this section may have been updated after the patient was seen, as this information can be updated by other users. Medical History HTN (hypertension), benign PURA (obstructive sleep apnea) Social History Smoking Status: Never smoker alcohol intake: current substance use type: denies use current occupational status: other Travel in the last 8 weeks: None household members: family housing: house current occupation: retail ROS Obtained: Yes All systems reviewed & no additional complaints except as documented Physical Exam General General appearance: alert and in no apparent distress Head Head exam: atraumatic and normocephalic Eye Eye exam: Present normal appearance, PERRL and EOMI ENT ENT exam: Present normal oropharynx and normal external ear exam Neck Neck exam: Present normal inspection and full ROM Chest Chest inspection: Present normal inspection and symmetric chest wall rise; Absent tenderness Respiratory Respiratory exam: Present normal lung sounds bilaterally; Absent respiratory distress Cardiovascular Cardiovascular exam: Present regular rate and normal rhythm Abdominal Exam Abdominal exam: Present soft; Absent distention, tenderness or guarding Extremities Exam Extremities exam: Present other (Laceration over palmar surface of the fourth metacarpal head, subcutaneous fat exposed, flexor tendon sheath is not exposed. No significant tenderness over the fingers, no pain with range of motion of the fingers or hand. Normal neurovascular exam.) Back Exam Back exam: Present normal inspection; Absent tenderness Neurological Exam Neurological exam: Present alert and oriented X3; Absent motor sensory deficit Psychiatric Psychiatric exam: Present normal affect and normal mood Skin Skin exam: Present warm, dry and normal color Lymphatic Lymphatic Findings: no adenopathy Medical Decision Making Medical Records Medical records reviewed: Yes I reviewed the patient's medical records. [place] Inquiry Pt receiving controlled substance: No [place] was queried for this patient: No Vital Signs: 07/01/23 00:30 07/01/23 02:11 07/01/23 02:14 Temperature 98.6 F 97.7 F Temperature Source Oral Oral Pulse Rate 80 77 Pulse Rate [Radial] 99 H Respiratory Rate 20 18 18 Blood Pressure 166/71 H 166/71 H Blood Pressure [Left Arm] 198/88 H Blood Pressure Mean 105 Blood Pressure Mean [Left Arm] 124 Blood Pressure Source Automatic Cuff Blood Pressure Source [Left Arm] Automatic Cuff Blood Pressure Position [Left Arm] Sitting 02 Sat by Pulse Oximetry 99 100 Oxygen Delivery Method Room Air Room Air Room Air Lab Data Lab results reviewed: Yes I reviewed the patient's lab results. Orders (Tests/Meds): ED MEDICATIONS Discontinued Medications Generic Name Dose Route Start Last Admin Trade Name Freq PRN Reason Stop Dose Admin Cefazolin Sodium 2 gm 07/01/23 00:37 07/01/23 00:59 Cefazolin 2gm Vial IV 07/01/23 00:38 Not Given ONCE ONE Cefazolin Sodium 2 gm/ Sodium 100 mls @ 200 mls/hr 07/01/23 00:52 07/01/23 00:58 Chloride IV 07/01/23 01:21 200 mls/hr ONCE ONE Administration Lidocaine HCl 5 ml 07/01/23 00:40 07/01/23 00:58 Lidocaine 1% 5ml Pf Vial IJ 07/01/23 00:41 5 ml ONCE ONE Administration ORDERS Category Date Time Status Hand XR right minimum 3 views [XR hand RT min 3V] Stat Exams 07/01/23 00:40 Completed Medical Decision Narrative: 68-year-old female presents with dog bite to the hand. History was obtained via conversation with patient, family. On arrival, patient is [afebrile, hemodynamically stable, satting appropriately, alert, oriented x4, GCS 15], moving all extremities spontaneously. Full physical exam performed and significant for laceration over the palmar surface of the hand over the fourth metacarpal joint. Differential includes but is not limited to open fracture, flexor tendon injury, laceration, tetanus exposure, rabies exposure. Patient was given 2 g IV Ancef for prophylaxis of possible open fracture. Workup initiated including radiographs of the right hand.. On re-evaluation, patient [remains afebrile, HD stable.] Imaging independently interpreted by me and significant for no evidence of bony injury or retained foreign body radiograph of the hand. See radiology read for full review of final results. Given patient history, exam and workup, patient's presentation most likely represents simple laceration to the palmar surface of the right hand from a dog bite without evidence of deep structure injury. It was copiously irrigated and repaired by me at bedside. Wound care instructions given. Patient discharged with prescription for Augmentin for antibiotic prophylaxis. Procedures Risk/Benefits of Procedure(s) Were Explained: Yes Laceration Laceration 1: Site: hand Side (If applicable): right Size (cm): 2 Description: linear Depth: involves subcutaneous layer Local Anesthetic: lidocaine 1% Amount of anesthesia used (mL): 5 Pre-repair: wound explored, irrigated extensively and deep structures intact Skin layer closed with: other (fast gut) Size (cm): 5-0 Number of sutures: 5 Technique: simple, interrupted Critical Care Critical Care Time Critical Care Time: No
--- NOTE | 2023-07-01 00:40 | XR_ITS ---
PROCEDURE INFORMATION: Exam: XR Right Hand Exam date and time: 07/01/2023 12:42 AM Age: 68 years old Clinical indication: Injury or trauma; Puncture; Right; Patient HX: Dog bite to hand, laceration to palm TECHNIQUE: Imaging protocol: Radiologic exam of the right hand. Views: 3 or more views. COMPARISON: CR XR HAND RT MIN 3V 02/04/2019 1:08 PM FINDINGS: Bones/joints: Alignment is normal. The joint spaces are intact. There is no acute fracture. Prior hardware fixation of the distal radius. Soft tissues: No radiopaque foreign body or soft tissue air is evident. IMPRESSION: No acute findings.
[2023-07-01] MEDS: CEFAZOLIN SODIUM 2 GM in 0.9 % SODIUM CHLORIDE 100 ML IV (00:58)
[2023-07-01] MEDS: LIDOCAINE 1% 5ML PF VIAL 5 ML IJ (00:58)
[2023-07-01 02:11] VITALS: BP 166/71; PULSE 80; RESP 18; O2SAT 100
[2023-07-01 02:14] VITALS: BP 166/71; PULSE 77; RESP 18; TEMP 36.5; O2SAT 97
== END 2023-07-01 02:15 | disposition home or self-care (01) ==
PROVIDERS: Emergency Provider Emergency Medicine; PCP Physician Assistant
DX: S61.411A Laceration without foreign body of right hand, initial encounter (principal); S61.451A Open bite of right hand, initial encounter; I10 Essential (primary) hypertension; G47.33 Obstructive sleep apnea (adult) (pediatric); W54.0XXA Bitten by dog, initial encounter
CPT/HCPCS: 12001; 73130; 96365; 99284

== ENCOUNTER 2023-08-16 10:00 | Outpatient (RCR) | payer MEDICARE, MEDICAID, SELFPAY ==
--- NOTE | 2023-07-16 11:45 | HMH.OTOPEV ---
OT Inpatient Evaluation Rehab OT Outpatient Eval Start: 07/16/23 11:33 Freq: Status: Active Protocol: Document 07/16/23 11:34 RMKEREN (Rec: 07/16/23 11:45 [id number]) E-signed By Khoa Julio, OT Outpatient Therapy Subjective History Subjective History Pt is a 68 year old female who reports to therapy for initial evaluation to left shoulder. Pt reports 2 incidents where she has injured or strained her left shoulder. The first time was in March 2023 when she was sitting in the passenger seat of a truck and reached back into the back seat to get her purse. During this motion she felt a pull with pain . The shoulder continued to be sore /painful after this. Next, around 2022, pt almost fell forward out of a rocking chair and used left UE to catch/stop herself from fall when she heard a loud audible pop at left shoulder. After this accident she has had continued pain and stiffness at left shoulder. Pt is right hand dominant. Upon evaluation, pt demonstrates with decreased AROM and strength at left shoulder. Positive shoulder special test indicating inflammation. At this time she has not had any imaging completed. Therapist will continue to see patient two times a week in order to address these deficits. Short term goals: 1. Pt will increase left shoulder flexion to 140 degrees in order to complete daily overhead tasks independently ~50% of the time . 2. Pt will increase L shoulder abduction to 110 degrees to complete upper body dressing independently ~50% of the time. 3. Pt will increase L shoulder ER/IR to 80 degrees ( ER) and 50 degrees (IR) in order to complete lower body dressing (putting on and taking off belt) independently ~50% of the time. 4. Pt will increase strength to 4/5 throughout left shoulder in order to complete heavier household tasks ( laundry, mopping, vacuuming) independently ~50% of the time . 5. Pt will verbalize decreased pain levels at worst in L shoulder to a 2/10 in order to complete daily ADLs independently ~50% of the time . 6. Pt will demonstrate improved endurance by completing left shoulder exercises for ~20 minutes prior to rest break in order to increase his tolerance for daily work activities. 7. Pt will demonstrate independence with HEP of AAROM exercises to increase overall functional use of left shoulder in daily activities ~ 75% of the time. 8. Pt will score a 15 or below on Quck Dash for Activities in order to demonstrate improved overall functional use of LUE. correction goals: 1. Pt will increase L shoulder flexion to 155 degrees in order to complete daily overhead tasks independently ~75% of the time . 2. Pt will increase L shoulder abduction to 120 degrees to complete upper body dressing independently ~75% of the time. 3. Pt will increase L shoulder ER/IR to 90 degrees ( ER) and 70 degrees (IR)in order to complete lower body dressing (putting on and taking off belt) independently ~75% of the time. 4. Pt will increase strength to 5/5 throughout left shoulder in order to complete heavier household tasks ( laundry, mopping, vacuuming) independently ~75% of the time . 5. Pt will verbalize decreased pain levels at worst in L shoulder to a 1/10 in order to complete daily ADLs independently ~75% of the time . 6. Pt will demonstrate improved endurance by completing L shoulder exercises for ~30 minutes prior to rest break in order to increase his tolerance for daily work activities. 7. Pt will demonstrate independence with HEP of Rotator cuff strengthening exercises to increase overall functional use of L shoulder for daily activities ~90% of the time. 8. Pt will score a 10 or below on Quck Dash for Activities in order to demonstrate improved overall functional use of LUE. [ End ] New diagnosis of cancer in past 12 No months? Chief Complaint Pain,Stiff,Weakness Symptom Type Ache,Throb,Dull Symptoms Relieved By Rest/Positioning Symptoms Aggravated By Physical Activity,Lifting Prior Functional Limitations None Current Functional Limitations Reaching,Lifting,Housework, Dressing,Sleeping Symptom Description Intermittent,Activity Dependent Level of pain today (0-10) 1 Pain scale - at its best (0-10) 0 Pain scale - at its worst (0-10) 3 Shoulder/Elbow Eval Shoulder Objective Measurements Shoulder ROM Left Shoulder Abduction Active Range of 95 degrees Motion (degrees) Shoulder Flexion Active Range of Motion 135 degrees (degrees) Query Text: Shoulder External Rotation Active Range 70 degrees of Motion (degrees) Shoulder Internal Rotation Active Range 40 degrees of Motion (degrees) Shoulder MMT Shoulder Abduction Strength Grade 4- Good- Shoulder Flexion Strength Grade 4- Good- Shoulder External Rotation Strength 4- Good- Grade Shoulder Internal Rotation Strength 4- Good- Grade Shoulder Strength Patient Testing Sitting Position Shoulder Special Tests impingement sign present shoulder exam left standard Shoulder Empty Can (Supraspinatus) Test Positive Left Shoulder Alas-Baltazar Impingement Positive Left Test Elbow Objective Measurements QuickDASH Activities Please rate your ability to do the following activities in the last week by selecting the number below the appropriate response. 1. Open a tight or new jar. No difficulty 2. Do heavy fiberglass model maker (e.g., wash No difficulty berger, floors). 3. Carry a shopping bag or briefcase. No difficulty 4. Wash your back. No difficulty 5. Use a knife to cut food. No difficulty 6. Recreational activities in which you Moderate difficulty take some force or impact through your arm, shoulder, or hand (e.g., golf, hammering, tennis, etc.). 7. During the past week, to what extent Moderately has your arm, shoulder or hand problem interfered with your normal social activities with family, friends, neighbors or groups? 8. During the past week, were you Moderately limited limited in your work or other regular daily activites as a result of your arm, shoulder or hand problem? 9. Arm, shoulder or hand pain. Moderate 10. Tingling (pins and needles) in your None arm, shoulder or hand. 11. During the past week, how much Mild difficulty difficulty have you had sleeping because of the pain in your arm, shoulder or hand? Quick DASH 20 OT Outpatient Assessment Impairments Problems/Impairments Palpation Tenderness,Impaired Range of Motion,Impaired Strength,Impaired Endurance, Impaired Lifting,Impaired Dressing,Impaired Shower/ Bathing,Impaired Household Care,Impaired Recreational Activities,Impaired Work Activities,Subjective C/O Pain Prognosis Rehab Potential Good Clinical Impression Consistent with Diagnosis Yes Outpatient Therapy Plan of Care Treatment Plan May Include Therapeutic Exercise Including Home Yes Exercise Program Manual Therapy Techniques Yes Neuromuscular Re-education Yes Therapeutic Activities to Return to Yes Previous Functional/Work Level ADL/Self Care Education Yes Thermal Modalities Yes Electrical Stimulation Yes Ultrasound/Phonophoresis Yes Iontophoresis Yes Orthotics/Bracing/Splinting Yes Massage Yes Eval/Re-Eval Yes Frequency Times per week 2 Duration Number of Weeks 6 Addendums This patient is a candidate for social No or vocational rehab? Patient/Guardian verbally acknowledges Yes understanding of treatment program and consents to further treatment? Patient/Guardian verbally acknowledges Yes understanding of diagnosis, prognosis and goals for treatment? Eval Complexity OT Charge 93939 - Moderate Complexity PHYSICIAN CERTIFICATION: I certify the specified therapy services for Shania Issa are required, authorized, and reviewed every 30 days.
== END 2023-08-16 11:00 | disposition home or self-care (01) ==
LOC: OT 10:00
PROVIDERS: PCP Physician Assistant; Visit Provider Nurse Practitioner Family
DX: M25.512 Pain in left shoulder (principal)
CPT/HCPCS: 97010; 97014; 97110; 97140; 97164; 97166; 97530; G0283

== ENCOUNTER 2024-10-14 13:58 | Outpatient (CLI) | payer MEDICARE, SELFPAY ==
--- NOTE | 2024-10-14 14:02 | XR_ITS ---
FINAL REPORT CLINICAL HISTORY: cough COMPARISON: 06/29/2020 FINDINGS: PA and lateral views of the chest were obtained. The cardiac and mediastinal silhouettes are within normal limits. There are new linear opacities in the lingula, likely atelectasis. There is no pleural effusion or pneumothorax. No acute osseous abnormality is identified. IMPRESSION: Likely lingular atelectasis. Reviewed, Interpreted and Dictated by Sarah Rosa MD Transcribed by Collette Amaral Authenticated and [facility]
== END 2024-10-14 23:59 | disposition home or self-care (01) ==
LOC: RAD 14:00
PROVIDERS: PCP Family Medicine; Visit Provider Student in an Organized Health Care Education/Training Program
DX: R05.9 Cough, unspecified (principal)
CPT/HCPCS: 71046

== ENCOUNTER 2024-10-17 10:15 | Outpatient (CLI) | payer MEDICARE, SELFPAY ==
[2024-10-17 18:38] LABS: Basophils % 0.3 % (0.1-2.0); Hematocrit 40.8 % (37.0-47.0); Immature Granulocytes # 0.03 10^3uL; Immature Granulocytes % 0.4 %; Lymphocytes # 1.1 K/mm3 (0.7-4.5); Lymphocytes % 15.4 % (10-50); Mean Corpuscular HGB Conc 31.9 g/dL (31.8-35.4); Mean Corpuscular Hemoglobin 27.8 pg (27.0-31.2); Mean Corpuscular Volume 87.4 fl (81-99); Mean Platelet Volume 10.8 fl (7.4-10.4); Monocytes # 0.3 K/mm3 (0.1-1.0); Monocytes % 4.5 % (1.7-9.3); Neutrophils # 5.6 K/mm3 (1.8-7.8); Neutrophils % 79.4 % (37.0-80.0); Nucleated Red Blood Cells # 0 10^3/uL; Nucleated Red Blood Cells % 0 %; Platelet Count 348 K/mm3 (142-424); Red Blood Count 4.67 M/mm3 (4.20-5.40); Red Cell Distribution Width 13.8 % (11.5-17.5); Red Cell Distribution Width-SD 44.1 fL; White Blood Count 7.1 K/mm3 (4.8-10.8)
[2024-10-17 18:53] LABS: Hemoglobin A1C 5.6 % (4.0-6.0)
[2024-10-17 19:07] LABS: Alanine Aminotransferase 19 U/L (12-78); Albumin Level 4.2 g/dl (3.5-5.0); Albumin/Globulin Ratio 1.5 (1.1-1.8); Alkaline Phosphatase 78 U/L (38-126); Anion Gap 9.6 mEq/L (5-15); Aspartate Amino Transferase 19 U/L (14-36); Bilirubin,Total 0.4 mg/dl (0.2-1.3); Blood Urea Nitrogen 22 mg/dl (7-17); Calcium 9.2 mg/dl (8.4-10.2); Carbon Dioxide 23 mmol/L (22.0-30.0); Chloride 110 mmol/L (98-107); Chol/HDL Ratio 2.7 (1-3.5); Cholesterol 149 mg/dl (140-200); Estimated Glomerular Filt Rate 123 ml/min (>60); GFR (African American) 149 ML/MIN (>60); Globulin 2.8 g/dL (1.3-3.2); Glucose 102 mg/dl (74-100); HDL Cholesterol 55 mg/dl (40-60); Potassium 4.6 mmoL/L (3.5-5.1); Sodium 138 mmol/L (136-145); Triglycerides 124 mg/dl (30-150); VLDL Cholesterol 25 mg/dL (0-40)
[2024-10-17 19:18] LABS: Direct LDL Cholesterol 71.94 mg/dL (100-129)
[2024-10-17 19:28] LABS: 25-OH Vitamin D, Total 23.2 ng/mL (30-100)
[2024-10-17 19:38] LABS: Thyroid Stimulating Hormone 0.37 uIU/mL (0.465-4.68)
== END 2024-10-17 23:59 | disposition home or self-care (01) ==
LOC: LAB.DROPOF 10-20 10:17
PROVIDERS: PCP Family Medicine; Visit Provider Family Medicine
DX: E55.9 Vitamin D deficiency, unspecified (principal); Z13.1 Encounter for screening for diabetes mellitus; I10 Essential (primary) hypertension
CPT/HCPCS: 80053; 80061; 82306; 83036; 84443; 85025